=== PATIENT | female | born 1970 | race Caucasian/White ===

== ENCOUNTER 2020-03-11 17:43 | Emergency (ER) | payer MEDICAID, SELFPAY ==
[2020-03-11 18:39] VITALS: BP 119/79; PULSE 88; RESP 16; TEMP 37.2; O2SAT 98; BMI 32.2
--- NOTE | 2020-03-11 18:44 | XR_ITS ---
EXAMINATION: XR CHEST CLINICAL INFORMATION: Cough and chest pain COMPARISON: Chest x-ray 06/13/2018 TECHNIQUE: 2 views of the chest were obtained. FINDINGS: Cardiac silhouette is normal in size. The lungs are adequately aerated. There is no lobar consolidation. No pleural effusion or pneumothorax. Mild degenerative changes of the thoracic spine. IMPRESSION: Stable examination demonstrating no acute pulmonary pathology.
--- NOTE | 2020-03-11 19:56 | ED.URI ---
HPI - URI/Sore Throat General Chief Complaint: Upper Respiratory Symptoms Stated Complaint: covid positive Time Seen by Provider: 03/11/20 18:44 History of Present Illness HPI Narrative: patient presents to ED for URI symptoms. Patient was informed today that she was COVID-19 positive. Patient presents to the ED to be further evaluated. Patient states increased headache and body aches. Patient states also subjective fevers. Patient does states chills. Patient states cough. Patient presently in the ER adenies shortness of breath or pain on inspiration. Patient states having symptoms for about a week. Related Data Previous Rx's Medication Instructions Recorded benzonatate [Tessalon Perles] 100 mg PO TID #15 cap 03/11/20 prednisone 40 mg PO DAILY #10 tab 03/11/20 Allergies Allergy/AdvReac Type Severity Reaction Status Date / Time No Known Allergies Allergy Verified 03/11/20 19:13 Review of Systems Review of Systems: is coughing, body aches, night sweats, fever, and chills. Patient denies any abdominal pain, nausea, vomiting, diarrhea, chest pain on inspiration, rash, swelling of extremities, calf pain, dizziness, photophobia, or weakness. Yes all other systems are reviewed and are negative PMFSH Past Medical History Medical History (Updated 03/11/20 @ 20:02 by CARMELO Larry) Asthma Diabetic acidosis, type II High cholesterol Pneumonia Social History Social History Alcohol intake: never Smoking Status: Current every day smoker Smoked in Last 30 Days: No Use of substances other than those prescribed or required for medical reasons: No Advance Directives: No Advance Directives Information Provided: No Physical Exam Vital Signs: Vital Signs: Vital Signs Temp Pulse Resp BP Pulse Ox 03/11/20 18:39 99 F 88 16 119/79 98 Body Mass Index 32.2 Const: General: cooperative, healthy appearing, comfortable, no acute distress, well developed, alert and awake Orientation/consciousness: oriented to person, oriented to place and oriented to time HENMT: Head: Yes normal to inspection Eyes: General: appearance normal, both eyes and all related structures Neck: Neck: Yes normal visual inspection, Yes full ROM, Yes no lymphadenopathy and Yes no meningeal signs Chest: Chest palpation & inspection: normal inspection of the chest and normal palpation of entire chest wall Resp: Effort & Inspection: normal respiratory effort, no audible wheezes, no cough, respiratory effort not decreased, no grunting, not labored, no nasal flaring, no paradoxical thoraco-abdom movements, no pursed lip breathing, no segmental paradox chest wall movement, no tracheal deviation and no tripod positioning Auscultation: wheezes ( Mild wheeze) expiratory wheezes Cardio: Jugular venous distension: no JVD Heart sounds: S1 normal heart sound present and S2 normal heart sound present GI: Inspection: Yes normal to inspection Palpation (GI): Soft to palpation, not firm, nontender, no guarding, not rigid and hepatosplenomegaly present : General: No CVA tenderness and Yes no CVA tenderness Back/Spine/Pelvis: Back: no CVA tenderness, No CVA tenderness and No back tenderness Neuro: General: oriented to person, oriented to place, oriented to time, patient oriented x3, gait normal, no meningeal signs and CN's II-XI intact bilaterally Cranial nerves: Yes CN's II-XII intact bilaterally Extrem: General: Yes normal to inspection Course Course Course Narrative: patient has URI induced asthma exacerbation. Patient is stable. Patient is not in any respiratory distress. Reevaluation(s) Reevaluation #1: X-ray negative for pneumonia. Patient has albuterol inhaler at home. Patient will be discharged with prednisone and Tessalon Perles. Patient educated on self-isolation Time: 20:01 MDM - URI/Sore Throat MDM Narrative Medical decision making narrative: COVID positive. Chest x-ray negative for pneumonia Discharge Plan Discharge Clinical Impression: Upper respiratory infection, COVID-19, Asthma exacerbation Patient Disposition: Home, Self-Care Instructions: Asthma (ED), COVID-19 (Coronavirus Disease 2019) (ED) Additional Instructions: return to the ED immediately for shortness of breath, chest pain, weakness, calf swelling, chest pain on inspiration, intractable fever, chills, weakness, or any other concerning symptoms. patient should quarantine for 14 days. Prescriptions: New benzonatate [Tessalon Perles] 100 mg capsule 100 mg PO TID Qty: 15 RF: 0 prednisone 20 mg tablet 40 mg PO DAILY Qty: 10 RF: 0 Referrals: Lucas Suresh INDUSTRIAL MAINTENANCE TECHNICIAN [Primary Care Provider] - 2 days ( COVID-19 positive. Chest x-ray normal) Stand Alone Forms: Work/School Release Interventions: ED Discharge Assessment Last Done: 10/20/20 20:17 Discharge Date/Time: 03/11/20 20:20
== END 2020-03-11 20:20 | disposition home or self-care (01) ==
PROVIDERS: Emergency Provider Emergency Medicine Emergency Medical Services; PCP Nurse Practitioner Family
DX: U07.1 COVID-19 (principal); J45.901 Unspecified asthma with (acute) exacerbation; E11.9 Type 2 diabetes mellitus without complications; F17.200 Nicotine dependence, unspecified, uncomplicated
CPT/HCPCS: 71046; 99284

== ENCOUNTER 2020-10-15 10:38 | Outpatient (REF) | payer MEDICAID, SELFPAY ==
--- NOTE | ~2020-10-15 | MM_ITS ---
EXAMINATION: MM SCREENING DIGITAL BREAST TOMOSYNTHESIS, BILATERAL CLINICAL INFORMATION: Screening. Asymptomatic. Family history breast cancer, sister. The lifetime risk of breast cancer based on the Tyrer-Cuzick Model is 22%. COMPARISON: Mammography: 06/17/2016, 10/01/2013 TECHNIQUE: Digital breast tomosynthesis is performed in both the craniocaudal and mediolateral oblique views along with computer-aided detection (CAD). Synthesized 2D images are generated from the tomosynthesis. FINDINGS: There are scattered areas of fibroglandular density (ACR BI-RADS breast composition Category b). There are no significant masses, abnormal calcifications, or other abnormalities. Parenchymal pattern is similar to prior exams. No developing density. There are small incidental intramammary nodes again seen bilateral outer breasts. No significant changes from prior studies. MM/MM tomosynthesis screening BI IMPRESSION: No mammographic evidence of malignancy. ASSESSMENT: BI-RADS 2: Benign RECOMMENDATION: 1. Routine annual mammography screening. 2. The lifetime risk of breast cancer based on the Tyrer-Cuzick Model is 22%. Additional annual adjunct screening with breast MRI may be of benefit in women with a risk score of 20% or greater. This patient's information was entered into a reminder system with a target due date for their next mammogram.
== END 2020-10-15 10:39 | disposition home or self-care (01) ==
LOC: HO.MAMMO 10:38
PROVIDERS: Visit Provider Nurse Practitioner Family
DX: Z12.31 Encounter for screening mammogram for malignant neoplasm of breast (principal)
CPT/HCPCS: 77063; 77067

== ENCOUNTER 2021-04-22 11:26 | Outpatient (REF) | payer MEDICAID, SELFPAY ==
--- NOTE | ~2021-04-22 | XR_ITS ---
EXAMINATION: 1. RADIOGRAPHS LEFT SHOULDER 2. RADIOGRAPHS LUMBAR SPINE 3. RADIOGRAPHS RIGHT KNEE 4. RADIOGRAPHS LEFT KNEE CLINICAL INFORMATION: Diffuse pain COMPARISON: Right knee x-rays 11/30/2017 TECHNIQUE: 4 views of the left shoulder, 5 views of the lumbar spine and 4 views of each knee were obtained. FINDINGS: Left shoulder: Visualized portion of the proximal left humerus demonstrate no fracture. Humeral head demonstrates good articulation with the glenoid fossa. Moderate hypertrophic changes of the left acromioclavicular joint. Visualized left-sided ribs and lung parenchyma are unremarkable. Lumbar spine: 5 nonrib-bearing lumbar vertebral bodies are visualized. Alignment is within normal limits. Vertebral bodies and disc spaces are well-maintained. Mild degenerative changes of the posterior elements of the lower lumbar spine. Sacroiliac joints are symmetric. Right knee: No fracture or dislocation. No suprapatellar joint effusion. Joint spaces are well-maintained. Tiny tricompartmental marginal osteophytes. No focal soft tissue swelling of the anterior knee. Left knee: No fracture or dislocation. No suprapatellar joint effusion. Joint spaces well maintained. Tiny tricompartmental marginal osteophytes. No focal soft tissue swelling of the anterior knee. XR/XR shoulder LT min 2V IMPRESSION: -Mild degenerative changes of the left shoulder without fracture or dislocation. -Mild degenerative changes of the lumbar spine without compression deformity. -Mild degenerative changes of the right and left knee without fracture, dislocation or joint effusion.
--- NOTE | ~2021-04-22 | XR_ITS ---
EXAMINATION: 1. RADIOGRAPHS LEFT SHOULDER 2. RADIOGRAPHS LUMBAR SPINE 3. RADIOGRAPHS RIGHT KNEE 4. RADIOGRAPHS LEFT KNEE CLINICAL INFORMATION: Diffuse pain COMPARISON: Right knee x-rays 11/30/2017 TECHNIQUE: 4 views of the left shoulder, 5 views of the lumbar spine and 4 views of each knee were obtained. FINDINGS: Left shoulder: Visualized portion of the proximal left humerus demonstrate no fracture. Humeral head demonstrates good articulation with the glenoid fossa. Moderate hypertrophic changes of the left acromioclavicular joint. Visualized left-sided ribs and lung parenchyma are unremarkable. Lumbar spine: 5 nonrib-bearing lumbar vertebral bodies are visualized. Alignment is within normal limits. Vertebral bodies and disc spaces are well-maintained. Mild degenerative changes of the posterior elements of the lower lumbar spine. Sacroiliac joints are symmetric. Right knee: No fracture or dislocation. No suprapatellar joint effusion. Joint spaces are well-maintained. Tiny tricompartmental marginal osteophytes. No focal soft tissue swelling of the anterior knee. Left knee: No fracture or dislocation. No suprapatellar joint effusion. Joint spaces well maintained. Tiny tricompartmental marginal osteophytes. No focal soft tissue swelling of the anterior knee. XR/XR knee RT 4V IMPRESSION: -Mild degenerative changes of the left shoulder without fracture or dislocation. -Mild degenerative changes of the lumbar spine without compression deformity. -Mild degenerative changes of the right and left knee without fracture, dislocation or joint effusion.
--- NOTE | ~2021-04-22 | XR_ITS ---
EXAMINATION: 1. RADIOGRAPHS LEFT SHOULDER 2. RADIOGRAPHS LUMBAR SPINE 3. RADIOGRAPHS RIGHT KNEE 4. RADIOGRAPHS LEFT KNEE CLINICAL INFORMATION: Diffuse pain COMPARISON: Right knee x-rays 11/30/2017 TECHNIQUE: 4 views of the left shoulder, 5 views of the lumbar spine and 4 views of each knee were obtained. FINDINGS: Left shoulder: Visualized portion of the proximal left humerus demonstrate no fracture. Humeral head demonstrates good articulation with the glenoid fossa. Moderate hypertrophic changes of the left acromioclavicular joint. Visualized left-sided ribs and lung parenchyma are unremarkable. Lumbar spine: 5 nonrib-bearing lumbar vertebral bodies are visualized. Alignment is within normal limits. Vertebral bodies and disc spaces are well-maintained. Mild degenerative changes of the posterior elements of the lower lumbar spine. Sacroiliac joints are symmetric. Right knee: No fracture or dislocation. No suprapatellar joint effusion. Joint spaces are well-maintained. Tiny tricompartmental marginal osteophytes. No focal soft tissue swelling of the anterior knee. Left knee: No fracture or dislocation. No suprapatellar joint effusion. Joint spaces well maintained. Tiny tricompartmental marginal osteophytes. No focal soft tissue swelling of the anterior knee. XR/XR lumbar spine 4V min IMPRESSION: -Mild degenerative changes of the left shoulder without fracture or dislocation. -Mild degenerative changes of the lumbar spine without compression deformity. -Mild degenerative changes of the right and left knee without fracture, dislocation or joint effusion.
--- NOTE | ~2021-04-22 | XR_ITS ---
EXAMINATION: 1. RADIOGRAPHS LEFT SHOULDER 2. RADIOGRAPHS LUMBAR SPINE 3. RADIOGRAPHS RIGHT KNEE 4. RADIOGRAPHS LEFT KNEE CLINICAL INFORMATION: Diffuse pain COMPARISON: Right knee x-rays 11/30/2017 TECHNIQUE: 4 views of the left shoulder, 5 views of the lumbar spine and 4 views of each knee were obtained. FINDINGS: Left shoulder: Visualized portion of the proximal left humerus demonstrate no fracture. Humeral head demonstrates good articulation with the glenoid fossa. Moderate hypertrophic changes of the left acromioclavicular joint. Visualized left-sided ribs and lung parenchyma are unremarkable. Lumbar spine: 5 nonrib-bearing lumbar vertebral bodies are visualized. Alignment is within normal limits. Vertebral bodies and disc spaces are well-maintained. Mild degenerative changes of the posterior elements of the lower lumbar spine. Sacroiliac joints are symmetric. Right knee: No fracture or dislocation. No suprapatellar joint effusion. Joint spaces are well-maintained. Tiny tricompartmental marginal osteophytes. No focal soft tissue swelling of the anterior knee. Left knee: No fracture or dislocation. No suprapatellar joint effusion. Joint spaces well maintained. Tiny tricompartmental marginal osteophytes. No focal soft tissue swelling of the anterior knee. XR/XR knee LT 4V IMPRESSION: -Mild degenerative changes of the left shoulder without fracture or dislocation. -Mild degenerative changes of the lumbar spine without compression deformity. -Mild degenerative changes of the right and left knee without fracture, dislocation or joint effusion.
== END 2021-04-22 11:27 | disposition home or self-care (01) ==
LOC: HO.XRAY 11:26
PROVIDERS: PCP General Practice; Visit Provider General Practice
DX: M25.512 Pain in left shoulder (principal); M25.561 Pain in right knee; M25.562 Pain in left knee; M54.50 Low back pain, unspecified
CPT/HCPCS: 72110; 73030; 73564

== ENCOUNTER → 2021-05-14 09:10 | Outpatient (REF) | payer MEDICAID, SELFPAY | LOC: HO.SL 09:10 | PROVIDERS: PCP General Practice; Visit Provider General Practice | DX: R06.83 Snoring (principal) | CPT/HCPCS: 95806 ==

== ENCOUNTER 2021-08-10 12:55 | Outpatient (REF) | payer MEDICAID, SELFPAY ==
--- NOTE | ~2021-08-10 | CT_ITS ---
EXAMINATION: CT CHEST WITHOUT CONTRAST CLINICAL INFORMATION: Asthma. Shortness of breath. History of COVID infection. COMPARISON: Previous chest x-ray February 2020. TECHNIQUE: Multidetector volumetric CT imaging of the chest was done. Axial MIP volume rendering provided. Sagittal and coronal reformatted images were obtained. This CT examination was performed using dose optimization techniques as appropriate, variously including the following: *Automated exposure control *Adjustment of mA and/or kV according to patient size (this includes techniques or standardized protocols for targeted exams where dose is matched to indication/reason for exam; i.e. extremities or head) *Use of iterative reconstruction technique DLP: 94 mGy-cm FINDINGS: LUNGS: There is an 8 mm right upper lobe nodule axial image 130 series 8. There are increased peripheral markings at the lung bases. Differential would include dependent atelectasis and mild interstitial disease or fibrotic chronic changes post COVID infection. The lungs are otherwise clear. No endobronchial or endotracheal lesion is seen. MEDIASTINUM: The mediastinum is normal. PLEURA: There is no pleural effusion. No pleural mass or thickening. AXILLA: No lymphadenopathy. UPPER ABDOMEN: There is fatty infiltration of the liver. OSSEOUS STRUCTURES: Unremarkable. CT/CT chest wo con IMPRESSION: Increased interstitial markings at the lung bases. Differential would include dependent atelectasis and post COVID fibrotic changes. 8 mm right upper lobe nodule. According to the UPDATED 2017 Fleischner Society recommendations, the advised follow-up imaging for 6 to 8 mm nodule: Low in high risk, chest CT followup in 6 to 12 month and 18 to 24 months. Fleischner guidelines were followed.
== END 2021-08-10 12:56 | disposition home or self-care (01) ==
LOC: HO.CT 12:55
PROVIDERS: Visit Provider General Practice
DX: J45.909 Unspecified asthma, uncomplicated (principal); R06.02 Shortness of breath; U09.9 Post COVID-19 condition, unspecified
CPT/HCPCS: 71250

== ENCOUNTER 2021-08-14 10:55 | Outpatient (REF) | payer MEDICAID, SELFPAY ==
--- NOTE | 2021-08-14 | PFT_ITS ---
FLOWS: FEV1 84% of predicted at 1.97 L. FVC 73% of predicted at 2.15 L. FEV1 to FVC ratio of 0.91. No bronchodilator response. LUNG VOLUMES: Total lung capacity 70% of predicted at 3.13 L. Residual volume 58% of predicted at 0.95 L. Slow vital capacity 77% of predicted at 2.18 L. Expiratory reserve volume 9% of predicted at 0.08 L. Diffusion capacity is normal. IMPRESSION: [id number] restrictive ventilatory defect with no bronchodilator response. Decreased expiratory reserve volume suggests extrathoracic restriction likely secondary to abdominal obesity. Marin Espinal MD AP/MODL / [id number]
== END 2021-08-14 10:56 | disposition home or self-care (01) ==
LOC: HO.RESP 10:55
PROVIDERS: Visit Provider General Practice
DX: J45.909 Unspecified asthma, uncomplicated (principal); R06.02 Shortness of breath; U09.9 Post COVID-19 condition, unspecified
CPT/HCPCS: 94060; 94727; 94729

== ENCOUNTER 2022-02-02 14:00 | Outpatient (RCR) | payer MEDICAID, SELFPAY ==
--- NOTE | 2022-04-19 12:26 | MHC.PT.DC ---
[facility] [place] Office [place] [facility] [place] Office [address] Ovi De Souza [address] [phone] F: [phone] F: [phone] F: [phone] F: [phone] Physical Therapy Discharge Report Diagnosis: LEFT SHOULDER PAIN (KP) Date of Surgery: Date of Evaluation: 01/21/22 Date of Discharge: 03/20/22 Treatments to Date: 2 Cancellations to Date: 1 No Shows to Date: 3 Discharge Status: Patient Elected to Stop Visit Non-compliance Discharge Summary: Anisha no showed for last 3 scheduled visits. At last attended visit assessment states Pt presenting today reporting 10/10 pain, able to complete all activities with minimal difficulty in functional ranges 100-120 of flexion dep on positioning. Increased difficulty with AAROM in supine than seated or with pulleys. Given updated HEP in algerian. Benefitted from ice at end of session w/PROM for discomfort. Electronically signed by: Lyric York PT, DPT Please sign and return to therapist. Thank you for your referral.
== END 2022-04-19 12:26 | disposition home or self-care (01) ==
LOC: HO.PT 14:00
PROVIDERS: PCP General Practice; Visit Provider General Practice
DX: M25.512 Pain in left shoulder (principal)
CPT/HCPCS: 97110; 97140; 97161

== ENCOUNTER 2022-06-15 12:03 | Outpatient (REF) | payer MEDICAID, SELFPAY ==
--- NOTE | ~2022-06-15 | XR_ITS ---
EXAMINATION: XR SHOULDER, LEFT CLINICAL INFORMATION: Left shoulder pain. COMPARISON: Left shoulder radiographs dated 04/22/2021. TECHNIQUE: AP, scapular Y, and axillary views of the left shoulder. FINDINGS: No acute fracture or dislocation. Acromioclavicular joint space narrowing with marginal osteophytes. Lateral subacromial spurring. No concerning lytic or blastic osseous lesion. No abnormal soft tissue calcification. 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 No significant interval change.
== END 2022-06-15 12:04 | disposition home or self-care (01) ==
LOC: HO.HOSX 12:03
PROVIDERS: Visit Provider Physician Assistant
DX: M79.18 Myalgia, other site (principal)
CPT/HCPCS: 73030; 99202

== ENCOUNTER → 2022-11-01 13:41 | Outpatient (BNVA) | payer MEDICAID, SELFPAY | PROVIDERS: PCP General Practice; Visit Provider Physician Assistant | DX: M79.18 Myalgia, other site (principal) | CPT/HCPCS: 99212 ==

== ENCOUNTER 2022-12-31 15:22 | Outpatient (REF) | payer MEDICAID, SELFPAY ==
--- NOTE | ~2022-12-31 | MM_ITS ---
EXAMINATION: MM SCREENING DIGITAL BREAST TOMOSYNTHESIS, BILATERAL CLINICAL INFORMATION: Screening. Asymptomatic. The lifetime risk of breast cancer based on the Tyrer-Cuzick Model is 22%. COMPARISON: Mammography: This study is compared with prior exams dating back to 2017. TECHNIQUE: Digital breast tomosynthesis is performed in both the craniocaudal and mediolateral oblique views along with computer-aided detection (CAD). Synthesized 2D images are generated from the tomosynthesis. FINDINGS: There are scattered areas of fibroglandular density (ACR BI-RADS breast composition Category b). There are no significant masses, abnormal calcifications, or other abnormalities. MM/MM tomosynthesis screening BI IMPRESSION: No mammographic evidence of malignancy. ASSESSMENT: BI-RADS BI-RADS 1 - Negative RECOMMENDATION: Routine annual mammography screening. Please note the lifetime risk of breast cancer is calculated at 22%. An adjunct screening breast MRI and genetic counseling should be considered if it is not already been discussed. 1 year F/U This examination should not preclude the clinical evaluation of a suspicious palpable abnormality. This patient's information was entered into a reminder system with a target due date for their next mammogram.
== END 2022-12-31 15:23 | disposition home or self-care (01) ==
LOC: HO.MAMMO 15:22
PROVIDERS: PCP General Practice; Visit Provider General Practice
DX: Z12.31 Encounter for screening mammogram for malignant neoplasm of breast (principal)
CPT/HCPCS: 77063; 77067

== ENCOUNTER → 2022-12-31 15:45 | Outpatient (BNV) | payer MEDICAID, SELFPAY | PROVIDERS: PCP General Practice; Visit Provider Radiology Diagnostic Radiology | DX: Z12.31 Encounter for screening mammogram for malignant neoplasm of breast (principal) | CPT/HCPCS: 77063; 77067 ==

== ENCOUNTER 2023-07-21 14:33 | Outpatient (REF) | payer MEDICAID, SELFPAY ==
[2023-07-21 16:46] LABS: Creatinine Urine 60.41 mg/dL; Microalbum/Creatinine Ratio Ur 13.2 ug/mg cr (<30)
[2023-07-22 04:43] LABS: HBS Num1 0.25 mIU/mL (0-7.99); HIV AB/AG Nonreactive (Nonreactive); HIV Num 1 0.07 S/CO (0.00-0.99); ~HepC Num1 0.22 S/CO (0.00-0.79); ~Hepatitis B Surface Antibody NONREACTIVE (Nonreactive); ~Hepatitis C Antibody Nonreactive (Nonreactive)
== END 2023-07-21 14:34 | disposition home or self-care (01) ==
LOC: HO.HHCL 14:33
PROVIDERS: Visit Provider General Practice
DX: E11.65 Type 2 diabetes mellitus with hyperglycemia (principal)
CPT/HCPCS: 36415; 82043; 82570; 86706; 86803; 87389

== ENCOUNTER 2025-01-11 11:11 | Outpatient (REF) | payer MEDICAID, SELFPAY ==
--- OUTSIDE RECORDS SUMMARY | 2025-01-11 11:19 | XMS_ITS | Encounter Summary ---
Author Organization [facility] Address [address] [address] Care Team Providers Care Store Administrative Assistant Name Role Phone Patricia Stanley MD Primary Care Provider Reason for Visit * Reason Onset Date Comments Appointment Request 10/08/2024 Encounter Details Date Type Department Care Team (Late st Contact Info) Description 10/08/2024 Telephone [facility] [address], [place] [phone] Patricia Stanley MD [address], [place] [phone] Appointment Request Social History Tobacco Use Types Packs/Day Years Used Date Smoking Tobacco: Never Smokeless Tobacco: Never Alcohol Use Standard Drinks/Week Comments Never 0 (1 standard drink = 0.6 oz pur e alcohol) Depression Answer Date Recorded Patient Health Questionnaire-9 Score 0 07/21/2023 Patient Health Questionnaire-9 Score 0 07/21/2023 Last PHQ-9: Questionnaire Data Not on file 0 07/21/2023 Housing Stability Answer Date Recorded What is your housing situation today? I have jonny coello 03/07/[address] you li ve. Do you have problems with any of the following? None of the above 03/07/2023 Food Insecurity Answer Date Recorded Within the past 12 months, y ou worried that your food would run out before you got money to buy more: Never True 07/21/2023 Within the past 12 months,th e food you bought just didn't last and you didn't have enough money to get more: Never True Transportation Answer Date Recorded In the past 12 months, has l ack of transportation kept you from medical appts, meetings, work or from getting things needed for daily living? No 07/14/2023 Utilities Answer Date Recorded In the past 12 months, has t he electric, gas, oil or water company threatened to shut off services in your home? No 03/07/2023 Depression Answer Date Recorded Patient Health Questionnaire-2 Score 0 07/21/2023 Internet Access Answer Date Recorded Internet Access Q1 Yes 03/07/2024 Internet Access Q2 Not on file 03/07/2024 Comments No Sex and Gender Information Value Date Recorded Sex Assigned at Female 03/22/2022 10:17 AM EDT Legal Sex Female 10:17 AM EDT Gender Identity Female 03/22/2022 10:17 AM EDT Sexual Orientation Lesbian or [place] 03/22/2022 10 :17 AM EDT documented as of this encounter Miscellaneous Notes * Telephone Encounter - Cm Darius - 10/08/2024 2:25 PM EDT Tc from pt requesting to reschedule physical with pcp. Please contact pt at [phone]. (Czech Speaker) documented in this encounter Plan of Treatment Not on file documented as of this encounter Visit Diagnoses Not on filedocumented in this encounter Additional Health Concerns Assessment Noted Time PHQ-9 Depression Total Score: 0 07/21/19 24 2:05 PM EST documented as of this encounter Care Teams Store Administrative Assistant Relationship Specialty Start Date End Date Patricia Stanley MD [address] [place] [address] PCP - General Family Medicine 01/21/20 documented as of this encounter
[2025-01-11 12:30] LABS: Alanine Aminotransferase 24 U/L (0-31); Albumin Level 4.4 g/dL (3.5-5.0); Alkaline Phosphatase 88 U/L (39-117); Anion Gap 11 (12-20); Aspartate Amino Transferase 24 U/L (5-31); Blood Urea Nitrogen 20 mg/dL (9-16); Calcium 9.4 mg/dL (8.4-10.2); Carbon Dioxide 26 mmol/L (22-29); Chloride 108 mmol/L (96-108); Cholesterol 165 mg/dL (<200); Estimated Glomerular Filt Rate 55; HDL Cholesterol 35 mg/dL (>40); Potassium 4.2 mmol/L (3.3-5.1); Sodium 141 mmol/L (135-145); Total Protein 6.8 g/dL (6.5-8.0); Triglycerides 129 mg/dL (<150)
== END 2025-01-11 11:12 | disposition home or self-care (01) ==
LOC: HO.HHCL 11:11
PROVIDERS: PCP General Practice; Visit Provider General Practice
DX: E11.65 Type 2 diabetes mellitus with hyperglycemia (principal)
CPT/HCPCS: 36415; 80053; 80061